=== PATIENT | female | born 1950 | race African-American/Black ===

== ENCOUNTER 2017-10-17 17:35 | Inpatient (IN) | payer OTHER ==
[~2017-10-17] VITALS: Ht 172.7 cm; Wt 90.4 kg
[~2017-10-17 17:35] MED LIST: ALLOPURINOL100 MG PO; ALLOPURINOL300 MG PO; AMBIEN10 MG PO; ASPIR-LOW81 MG PO; ASPIRIN81 M1 PO; BACTRIM,SEPT1 TABLET PO; CENTRUM SILVER1 EAC3 PO; CLONAZEPAM1 MG PO; DIGOX250 MCG PO; FUROSEMIDE40 MG PO; HYDROCHLOROTHIA25 MG PO; INDERAL40 MG PO; INDERAL80 MG PO; KEFLEX500 MG PO; METFORMIN HCL500 MG PO; NAPROSYN500 MG PO; NOHOMEMEDS; ROXICODONE5 MG PO; TAPAZOLE10 MG PO; TRAZODONE HCL100 MG PO; VICODIN,LORT1 TABLET PO; XARELTO20 MG PO
[2017-10-17 21:07] LABS: HEMATOCRIT 37.7 % (36.0-46.0); HEMOGLOBIN 12.3 G/DL (11.9-15.5); MCH 33.5 PG (29.0-34.0); MCHC 32.6 G/DL (30.0-36.0); MCV 102.7 FL (83-99); PLATELET COUNT 225 K/uL (156-360); RBC DIS.WIDTH-CV 14.5 % (11.8-14.6); RBC DIS.WIDTH-SD 55.1 % (39-53); RED BLOOD COUNT 3.67 M/uL (3.80-5.20); WHITE BLOOD COUNT 13.3 K/uL (4.1-10.2)
[2017-10-17 21:13] LABS: CHLORIDE 109 mEq/L (99-109); SODIUM 141 mEq/L (136-147)
[2017-10-17 21:15] LABS: GLUCOSE 100 mg/dL (70-99)
[2017-10-17 21:19] LABS: CREATININE 0.8 mg/dL (0.6-1.3); GFR ESTIMATE (CALCULATED) > 59 mL/min/
[2017-10-17 21:20] LABS: UREA NITROGEN (BUN) 16 mg/dL (9-23)
[2017-10-17 21:27] LABS: DIGOXIN 0.8 ng/mL (0.8-2.0)
[2017-10-17] MEDS ORDERED: ALEVE220 MG PO (23:13)
[2017-10-17] MEDS ORDERED: METHIMAZOLE5 MG PO (23:13)
[2017-10-17] MEDS ORDERED: DIFLUCAN150 MG PO (23:14)
[2017-10-17] MEDS ORDERED: DOXYCYCLINE HY100 MG PO (23:14)
[2017-10-17] MEDS ORDERED: AUGMENTIN875 MG PO (23:15)
[2017-10-18 03:06] VITALS: BP 175/80
[2017-10-18 07:30] VITALS: BP 166/77
[2017-10-18 10:43] VITALS: BP 143/76
[2017-10-18 16:24] VITALS: BP 154/70
[2017-10-18 20:34] VITALS: BP 135/69
[2017-10-18 23:53] VITALS: BP 144/64
[2017-10-19 06:11] LABS: HEMATOCRIT 37.1 % (36.0-46.0); HEMOGLOBIN 11.9 G/DL (11.9-15.5); MCH 33.1 PG (29.0-34.0); MCHC 32.1 G/DL (30.0-36.0); MCV 103.1 FL (83-99); PLATELET COUNT 205 K/uL (156-360); RBC DIS.WIDTH-CV 14.3 % (11.8-14.6); RBC DIS.WIDTH-SD 54.4 % (39-53); WHITE BLOOD COUNT 9.3 K/uL (4.1-10.2)
[2017-10-19 06:40] LABS: CREATININE 0.9 MG/DL (0.6-1.3); GFR ESTIMATE (CALCULATED) > 59 mL/min/
[2017-10-19 07:41] VITALS: BP 155/77
[2017-10-19 09:22] VITALS: BP 181/84
[2017-10-19 11:48] VITALS: BP 142/71
[2017-10-19 15:55] VITALS: BP 177/83
[2017-10-19 23:40] VITALS: BP 148/80
[2017-10-20 07:09] LABS: GFR ESTIMATE (CALCULATED) > 59 mL/min/
[2017-10-20 08:01] VITALS: BP 205/93
[2017-10-20 15:55] VITALS: BP 146/74
[2017-10-20 23:33] VITALS: BP 155/74
[2017-10-21 05:11] LABS: HEMATOCRIT 36.5 % (36.0-46.0); HEMOGLOBIN 11.7 G/DL (11.9-15.5); MCH 32.2 PG (29.0-34.0); MCHC 32.1 G/DL (30.0-36.0); MCV 100.6 FL (83-99); PLATELET COUNT 204 K/uL (156-360); RBC DIS.WIDTH-CV 13.8 % (11.8-14.6); RBC DIS.WIDTH-SD 51.6 % (39-53); RED BLOOD COUNT 3.63 M/uL (3.80-5.20); WHITE BLOOD COUNT 7.7 K/uL (4.1-10.2)
[2017-10-21 07:49] VITALS: BP 160/76
[2017-10-21 08:05] VITALS: BP 155/90
[2017-10-21 14:57] LABS: CREATININE 0.9 MG/DL (0.6-1.3); GFR ESTIMATE (CALCULATED) > 59 mL/min/
[2017-10-21 15:22] VITALS: BP 127/63
[2017-10-21 16:23] LABS: VANCOMYCIN, TROUGH 19.9 MCG/ML (10-20)
[2017-10-21 23:21] VITALS: BP 138/71
[2017-10-22 07:46] VITALS: BP 167/80
[2017-10-22 15:19] VITALS: BP 124/68
[2017-10-22 22:00] VITALS: BP 131/72
[2017-10-22 23:20] VITALS: BP 129/69
[2017-10-23 07:30] VITALS: BP 138/69
[2017-10-23] MEDS ORDERED: AUGMENTIN875 MG PO (08:15)
[2017-10-23] MEDS ORDERED: AMLODIPINE BESY10 MG PO (08:17)
[2017-10-23] MEDS ORDERED: LOPRESSOR50 MG PO (08:17)
== END 2017-10-23 14:46 | disposition home or self-care (01) | DRG 603 ==
LOC: RME 17:35 → EME 17:35 → 3EAST 21:00 → EDOF 21:00 → ENRESERV 22:08 → 3EAST 10-18 02:20
PROVIDERS: Family Medicine; Internal Medicine; Physician Assistant Medical
DX: L03.211 Cellulitis of face (principal); L02.01 Cutaneous abscess of face; I10 Essential (primary) hypertension; I48.0 Paroxysmal atrial fibrillation; E11.9 Type 2 diabetes mellitus without complications; L73.2 Hidradenitis suppurativa; H54.8 Legal blindness, as defined in USA; M10.9 Gout, unspecified; E05.90 Thyrotoxicosis, unspecified without thyrotoxic crisis or storm; Z72.0 Tobacco use; Z79.01 Long term (current) use of anticoagulants; Z79.82 Long term (current) use of aspirin; Z82.49 Family history of ischemic heart disease and other diseases of the circulatory system
CPT/HCPCS: 70487; 71045; 80048; 80162; 80202; 82565; 82948; 83605; 84443; 85027; 87040; 99281; 99285; J2543; J3370; J7050

== ENCOUNTER 2018-04-25 20:43 | Emergency (ER) | payer OTHER ==
[~2018-04-25] VITALS: Ht 177.8 cm; Wt 92.1 kg
[~2018-04-25 20:43] MED LIST changes: +ALEVE220 MG PO; +AMLODIPINE BESY10 MG PO; +AUGMENTIN875 MG PO; +DIFLUCAN150 MG PO; +DOXYCYCLINE HY100 MG PO; +LOPRESSOR50 MG PO; +METHIMAZOLE5 MG PO
[2018-04-25 21:17] LABS: HEMATOCRIT 40.5 % (36.0-46.0); HEMOGLOBIN 13.5 G/DL (11.9-15.5); MCHC 33.3 G/DL (30.0-36.0); PLATELET COUNT 230 K/uL (156-360); RBC DIS.WIDTH-CV 14.4 % (11.8-14.6); RBC DIS.WIDTH-SD 52.4 % (39-53); RED BLOOD COUNT 4.09 M/uL (3.80-5.20); WHITE BLOOD COUNT 11.6 K/uL (4.1-10.2)
[2018-04-25 21:28] LABS: CHLORIDE 107 mEq/L (99-109); POTASSIUM 4.4 mEq/L (3.7-5.4); SODIUM 140 mEq/L (136-147)
[2018-04-25 21:30] LABS: GLUCOSE 106 mg/dL (70-99); INTER. NORMALIZED RATIO 2.3
[2018-04-25 21:34] LABS: CREATININE 0.9 mg/dL (0.6-1.3); GFR ESTIMATE (CALCULATED) > 59 mL/min/
[2018-04-25 21:35] LABS: UREA NITROGEN (BUN) 20 mg/dL (9-23)
[2018-04-25] MEDS ORDERED: CLEOCIN300 MG PO (22:57)
[2018-04-25] MEDS ORDERED: TRAMADOL HCL50 MG PO (22:57)
[2018-04-25 23:22] VITALS: BP 128/64
== END 2018-04-25 23:23 | disposition home or self-care (01) ==
LOC: EME 20:43
DX: L03.116 Cellulitis of left lower limb (principal); I48.91 Unspecified atrial fibrillation; I10 Essential (primary) hypertension; E78.5 Hyperlipidemia, unspecified; F41.9 Anxiety disorder, unspecified; F32.9 Major depressive disorder, single episode, unspecified; Z79.01 Long term (current) use of anticoagulants; F17.200 Nicotine dependence, unspecified, uncomplicated; Z79.82 Long term (current) use of aspirin; Z88.5 Allergy status to narcotic agent
CPT/HCPCS: 80048; 85027; 85610; 93971; 99281; 99284